=== PATIENT | male | born 1935 | race Caucasian/White ===

== ENCOUNTER 2017-09-02 21:03 | Inpatient (IN) | payer OTHER ==
[~2017-09-02] VITALS: Ht 177.8 cm; Wt 80.6 kg
[2017-09-02 22:44] LABS: HEMATOCRIT 38.1 % (38.0-50.0); MCH 29.6 PG (29.0-34.0); MCHC 32.3 G/DL (30.0-36.0); MCV 91.6 FL (86-99); MEAN PLAT.VOLUME 9.6 uM^3 (9.0-12.4); PLATELET COUNT 159 K/uL (156-360); RBC DIS.WIDTH-CV 13.6 % (11.8-14.6); RBC DIS.WIDTH-SD 45.8 % (39-53); RED BLOOD COUNT 4.16 M/uL (4.00-5.50); WHITE BLOOD COUNT 7.2 K/uL (4.1-10.2)
[2017-09-02 22:51] LABS: INTER. NORMALIZED RATIO 1.2; PROTHROMBIN TIME 12.7 SEC (10.2-12.9)
[2017-09-02 22:53] LABS: PTT 32.1 SEC (25-37)
[2017-09-02 23:03] LABS: CHLORIDE 110 mEq/L (99-109); POTASSIUM 4.1 mEq/L (3.7-5.4); SODIUM 142 mEq/L (136-147)
[2017-09-02 23:05] LABS: GLUCOSE 105 mg/dL (70-99)
[2017-09-02 23:06] LABS: ANION GAP 7 MEQ/L (2-14)
[2017-09-02 23:09] LABS: GFR ESTIMATE (CALCULATED) 36 mL/min/
[2017-09-02 23:10] LABS: UREA NITROGEN (BUN) 29 mg/dL (9-23)
[2017-09-02 23:17] LABS: TROP-I INTERPRETATION NEGATIVE; TROPONIN-I < 0.01 ng/mL (0.0-0.30)
[2017-09-03 04:18] VITALS: BP 179/79
[2017-09-03 04:58] LABS: ADD MIUA? NO; BILIRUBIN NEGATIVE; BLOOD NEGATIVE; COLOR YELLOW ((YELLOW)); GLUCOSE (STRIP) NEGATIVE; KETONES NEGATIVE; LEUKOCYTES NEGATIVE; NITRITE NEGATIVE; PROTEIN (STRIP) NEGATIVE; SPECIFIC GRAVITY 1.018 (1.000-1.030); UCUL ADDED? NO
[2017-09-03 06:51] LABS: HEMATOCRIT 38.6 % (38.0-50.0); MCH 29.2 PG (29.0-34.0); MCHC 31.3 G/DL (30.0-36.0); MCV 93.2 FL (86-99); MEAN PLAT.VOLUME 10.2 uM^3 (9.0-12.4); PLATELET COUNT 159 K/uL (156-360); RBC DIS.WIDTH-CV 13.6 % (11.8-14.6); RBC DIS.WIDTH-SD 46.5 % (39-53); RED BLOOD COUNT 4.14 M/uL (4.00-5.50); WHITE BLOOD COUNT 9.1 K/uL (4.1-10.2)
[2017-09-03 07:11] LABS: ALKALINE PHOSPHATASE 65 IU/L (3-129); ANION GAP 12 MEQ/L (2-14); CHLORIDE 109 MEQ/L (99-109); GFR ESTIMATE (CALCULATED) 41 mL/min/; GLUCOSE 89 mg/dL (70-99); SAMPLE HEMOLYSIS CHECK 0; SAMPLE ICTERIC CHECK 0; SAMPLE LIPEMIA CHECK 0; SODIUM 143 MEQ/L (136-147); TOTAL BILIRUBIN 0.7 MG/DL (0.0-1.0); UREA NITROGEN (BUN) 25 mg/dL (9-23)
[2017-09-03 07:15] LABS: TROP-I INTERPRETATION NEGATIVE; TROPONIN-I 0.01 ng/mL (0.0-0.30)
[2017-09-03 07:50] VITALS: BP 163/87
[2017-09-03 11:42] VITALS: BP 166/76
[2017-09-03 13:24] LABS: TROP-I INTERPRETATION NEGATIVE; TROPONIN-I 0.02 ng/mL (0.0-0.30)
[2017-09-03] MEDS ORDERED: HYDROCHLOROTHIA25 MG PO (14:14)
[2017-09-03] MEDS ORDERED: ZANTAC150 MG PO (14:14)
[2017-09-03] MEDS ORDERED: SYNTHROID75 MCG PO (14:14)
[2017-09-03] MEDS ORDERED: PRILOSEC20 MG PO (14:15)
[2017-09-03] MEDS ORDERED: FLONASE16 G1 BOTH NARES (14:15)
[2017-09-03] MEDS ORDERED: LOPRESSOR25 MG PO (14:15)
[2017-09-03] MEDS ORDERED: PRAVACHOL10 MG PO (14:16)
[2017-09-03] MEDS ORDERED: FLOMAX0.4 MG PO (14:16)
[2017-09-03] MEDS ORDERED: NORCO 7.5/321 TABLET PO (14:17)
[2017-09-03] MEDS ORDERED: SEROQUEL12.5 MG PO ×2 (14:18)
[2017-09-03] MEDS ORDERED: ARICEPT10 MG PO (14:19)
[2017-09-03] MEDS ORDERED: VENTOLIN HFA18 GM IH (14:20)
[2017-09-03] MEDS ORDERED: ERGOCALCIF50000 UNIT PO (14:20)
[2017-09-03] MEDS ORDERED: XALATAN2.5 ML BOTH EYES (14:20)
[2017-09-03 15:52] VITALS: BP 111/75
[2017-09-03 19:39] VITALS: BP 165/86
[2017-09-04 03:37] VITALS: BP 154/81
[2017-09-04 07:01] LABS: EOSINOPHIL (%) 5.3 % (0-5); EOSINOPHIL COUNT 0.3 K/uL (0-0.3); HEMATOCRIT 36.5 % (38.0-50.0); IMMATURE GRANULOCYTE (%) 0.6 % (0.0-0.7); INSTRUMENT ABS NEUTROPHIL CT 4.7 K/uL; MCH 30.1 PG (29.0-34.0); MCHC 32.9 G/DL (30.0-36.0); MCV 91.5 FL (86-99); MEAN PLAT.VOLUME 9.8 uM^3 (9.0-12.4); MONOCYTE (%) 5.4 % (3-12); MONOCYTE COUNT 0.4 K/uL (0-0.8); NEUTROPHIL (%) 72.3 % (45-76); NEUTROPHIL COUNT 4.7 K/uL (1.8-6.4); PLATELET COUNT 159 K/uL (156-360); RBC DIS.WIDTH-CV 13.5 % (11.8-14.6); RBC DIS.WIDTH-SD 45.6 % (39-53); RED BLOOD COUNT 3.99 M/uL (4.00-5.50); WHITE BLOOD COUNT 6.4 K/uL (4.1-10.2)
[2017-09-04 07:09] LABS: ANION GAP 11 MEQ/L (2-14); CHLORIDE 110 MEQ/L (99-109); GFR ESTIMATE (CALCULATED) 41 mL/min/; GLUCOSE 98 mg/dL (70-99); POTASSIUM 3.7 MEQ/L (3.7-5.4); SAMPLE HEMOLYSIS CHECK 0; SAMPLE ICTERIC CHECK 0; SAMPLE LIPEMIA CHECK 0; SODIUM 143 MEQ/L (136-147); UREA NITROGEN (BUN) 25 mg/dL (9-23)
[2017-09-04 07:42] VITALS: BP 123/67
[2017-09-04] MEDS ORDERED: AMLODIPINE BESYL5 MG PO (13:51)
== END 2017-09-04 16:05 | disposition home health service (06) | DRG 684 ==
LOC: EME → EDBD 21:03 → 5SOUTH 09-03 01:38 → EDOF 09-03 01:38 → ENRESERV 09-03 01:39 → 5SOUTH 09-03 04:03
PROVIDERS: Emergency Medicine; Hospitalist; Internal Medicine
DX: N17.9 Acute kidney failure, unspecified (principal); I44.1 Atrioventricular block, second degree; I45.5 Other specified heart block; G30.9 Alzheimer's disease, unspecified; F02.80 Dementia in other diseases classified elsewhere, unspecified severity, without behavioral disturbance, psychotic disturbance, mood disturbance, and anxiety; E78.5 Hyperlipidemia, unspecified; I12.9 Hypertensive chronic kidney disease with stage 1 through stage 4 chronic kidney disease, or unspecified chronic kidney disease; N18.9 Chronic kidney disease, unspecified; J44.9 Chronic obstructive pulmonary disease, unspecified; K21.9 Gastro-esophageal reflux disease without esophagitis; E03.9 Hypothyroidism, unspecified; N40.0 Benign prostatic hyperplasia without lower urinary tract symptoms; H40.9 Unspecified glaucoma; Z66 Do not resuscitate; Z23 Encounter for immunization; Z87.891 Personal history of nicotine dependence
CPT/HCPCS: 80048; 80053; 81003; 84484; 85025; 85027; 85610; 85730; 90686; 93005; 99281; 99284; J1644; J7030